=== PATIENT | female | born 2000 | race Caucasian/White ===

== ENCOUNTER → 2021-09-28 | Outpatient (CLI) | payer OTHER | LOC: MC.RAD 09:44 | DX: N63.21 Unspecified lump in the left breast, upper outer quadrant (principal) ==

== ENCOUNTER → 2021-10-09 | Outpatient (CLI) | payer OTHER | LOC: MC.RAD 09:50 | DX: N63.21 Unspecified lump in the left breast, upper outer quadrant (principal) ==